=== PATIENT | female | born 1995 | race Two or more races ===

== ENCOUNTER 2024-12-13 08:47 | Emergency (ER) | payer MEDICAID, SELFPAY ==
[2024-12-13] VITALS (9 sets, daily range): BP systolic 110–145; BP diastolic 68–92; PULSE 56–656; RESP 12–24; TEMP 36.8–37.1; O2SAT 97–100; BMI 19.7
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
[2024-12-13] MEDS: ONDANSETRON INJ 2 MG/ML INJ 2 ML 4 MG IV (10:39)
[2024-12-13] MEDS: MORPHINE SULF INJ 10 MG/ML VIAL 4 MG IVP ×3 (10:40→17:17)
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
--- NOTE | 2024-12-13 12:34 | PC.NURSE ---
RECEIVED VERBAL ORDER FOR 5MG MORPHINE IV AND FINGER TRAP FOR RIGHT HAND
[2024-12-13] MEDS: MORPHINE SULF INJ 10 MG/ML VIAL 5 MG IVP (12:44)
--- NOTE | 2024-12-13 15:27 | XR_ITS ---
Examination: Right wrist 2 views Technique one AP lateral right wrist 2 views Exam date and time: December 13, 2024 1540 hours Comparison December 13, 2024 10:20 AM INDICATIONS: Post reduction wrist fracture today FINDINGS: Significant improvement in alignment severely comminuted intra-articular fracture distal radial metaphysis On the lateral view 4.5 mm dorsal displacement of the distal radial fracture fragment IMPRESSION: Significant improvement in alignment severely comminuted intra-articular fracture distal radial metaphysis
--- NOTE | 2024-12-13 15:38 | PC.NURSE ---
pt is done with sedation and is back to baseline. talking and gcs of 15. splint applied and waiting post xray.
[2024-12-13] MEDS: PROPOFOL INJ 10 MG/ML VIAL 20 ML 200 MG IV (15:47)
== END 2024-12-13 19:13 | disposition home or self-care (01) ==
PROVIDERS: Emergency Provider Emergency Medicine; PCP Family Medicine
DX: S52.501A Unspecified fracture of the lower end of right radius, initial encounter for closed fracture (principal); V89.2XXA Person injured in unspecified motor-vehicle accident, traffic, initial encounter
CPT/HCPCS: 25605; 73090; 73100; 96374; 96375; 99285; A4565; J2270; J2405; J2704